=== PATIENT | male | born 1945 | race Caucasian/White ===

== ENCOUNTER 2016-06-23 11:42 | Outpatient (CLI) | payer MEDICARE, BC ==
[~2016-06-23] VITALS: Ht 177.8 cm; Wt 97.7 kg
--- NOTE | ~2016-06-23 | HEMODYNAMI ---
PATIENT:DONNIE FLORES MEDICAL RECORD: [id number] : 43 LOCATION:[facility] ADMISSION DATE: 06/23/16 Generatedon:06/23/201615:33 Patient name: DONNIE FLORES Patient #: [id number] SSN: : 1945 Date of study: 06/23/2016 Page: Of Hemodynamic Procedure Report Patient Data Patient Demographics Procedure consent was obtained First Name: DONNIE Gender: Male Last Name: MARK : 1945 Patient #: [id number] Age: 70 year(s) Race: Unknown Additional ID: [id number] Contact details [address]: [address] [place] [address] State: [place] City: [place] Zip code: [address] Admission Admission Data Admission Date: 06/23/2016 Admission Time: 11:42 Procedure Procedure Types Cath Procedure Diagnostic Procedure LHC LHC w/Coronaries w/Grafts PCI Procedure Coronary Stent Initial Procedure Description Procedure Date Procedure Date: 06/23/2016 Procedure Start Time: 14:30 Procedure Staff Name Function Atilio Arizmendi MD Performing Physician Milo Rascon RT Scrub Andrea Grant RT Monitor Manda Gillespie RN Nurse Procedure Data Cath Procedure Fluoroscopy Diagnostic fluoroscopy Total fluoroscopy Time: 21 time: 21 min min Diagnostic fluoroscopy Total fluoroscopy dose: dose: 1682.32 mGy 1682.32 mGy Contrast Material Contrast Material Type Amount (ml) Isovue 370 305 Entry Location Entry Primary Successful Side Size Upsize Upsize Entry Closure Succes sful Closure Location (Fr) 1 (Fr) 2 (Fr) Remarks Device Remarks Femoral Right 5 Fr 6 Fr artery Short Diagnostic catheters Device Type Used For End Catheter Placement Cordis 5Fr JL 4.0 Left Coronary Catheter (MP) Angiography Cordis 5Fr 3DRC Catheter Right Coronary (MP) Angiography Cordis Infinity 5Fr LCB SVG Angiography catheter Cordis 5Fr Pigtail LV Angiography Catheter (MP) Procedure Medications Medication Administration Route Dosage Oxygen NC 2 l/min Heparin Flush Bag added to field 2 bags (1000units/500ml NS) Lidocaine 2% added to field 20 Benadryl I.V. 50 mg Versed I.V. 1 mg Fentanyl I.V. 50 mcg Versed I.V. 1 mg Fentanyl I.V. 50 mcg Versed I.V. 0.5 mg Integrilin (Bolus I.V. 9 ml 2mg/ml) Heparin Bolus I.V. 5000 units Versed I.V. 0.5 mg Versed I.V. 1 mg Plavix P.O. 600 mg Hemodynamics Rest Heart Rate: 112 (bpm) Pressure Samples Time Site Value (mmHg) Purpose Heart Use Rate(bpm) 14:42 LV 115/10,18 Snapshot 77 14:43 AO 106/56(79) Pullback 87 14:43 LV 108/25,25 Pullback 87 Gradients Valve Time Site 1 Site 2 Mean SEP/DFP Peak To Heart Use (mmHg) (sec/min) Peak Rate (mmHg) (bpm) Aortic 14:43 LV AO 2 87 108/25,25 106/56(79) Calculations Valve P-P Mean Valve Index Valve Source Name Gradient Area Flow (cm2) Aortic 2 2 Snapshots Pre Cath Intra NCS Post Cath Vital Signs Time Heart Resp SPO2 NIBP (mmHg) Rhythm Pain Sedation Rate (ipm) (%) Status Level (bpm) 14:09:48 72 23 97 169/94(124) NSR 0 (11) 10(A) , No pain 14:14:08 76 19 98 173/96(122) NSR 0 (11) 10(A) , No pain 14:18:32 75 20 100 171/87(128) NSR 0 (11) 10(A) , No pain 14:22:58 68 18 98 154/78(114) NSR 0 (11) 10(A) , No pain 14:27:16 73 22 99 144/86(119) NSR 0 (11) 10(A) , No pain 14:31:30 70 20 95 152/85(120) NSR 0 (11) 9(A) , No pain 14:35:48 71 21 96 143/79(96) NSR 0 (11) 9(A) , No pain 14:40:02 70 22 94 108/62(86) NSR 0 (11) 9(A) , No pain 14:44:10 73 24 97 111/65(92) NSR 0 (11) 9(A) , No pain 14:48:20 70 27 94 109/60(91) NSR 0 (11) 9(A) , No pain 14:52:28 70 21 96 110/66(85) NSR 0 (11) 9(A) , No pain 14:56:40 69 23 94 103/54(83) NSR 0 (11) 9(A) , No pain 15:00:44 76 20 97 119/68(102) NSR 0 (11) 9(A) , No pain 15:04:54 72 22 96 128/71(99) NSR 0 (11) 9(A) , No pain 15:09:52 73 23 98 Measuring NSR 0 (11) 9(A) , No pain 15:10:03 72 22 97 126/75(98) NSR 0 (11) 9(A) , No pain 15:14:15 69 21 97 131/74(112) NSR 0 (11) 9(A) , No pain 15:18:27 67 22 97 140/74(94) NSR 0 (11) 9(A) , No pain 15:22:40 70 20 97 132/78(104) NSR 0 (11) 9(A) , No pain 15:26:54 68 20 96 130/73(100) NSR 0 (11) 9(A) , No pain 15:31:04 70 18 97 144/80(110) NSR 0 (11) 9(A) , No pain Medications Time Medication Route Dose Verified Delivered Reason Notes Effectiveness by by 14:08:09 Oxygen NC 2 Manda Amnda used for l/min Gillespie Gillespie community marketing coordinator RN 14:08:15 Heparin Flush added 2 Manda Manda used for Bag to bags Gillespie Gillespie procedure (1000units/500ml RN RN NS) 14:08:23 Lidocaine 2% added 20ml Manda Manda used for to vial Gillespie Gillespie procedure field SELLERS RN 14:08:29 Benadryl I.V. 50 mg Manda Manda Per physician Jose Miguel Gillespie RN RN 14:29:46 Versed I.V. 1 mg Manda Manda for sedation Jose Miguel Gillespie RN RN 14:29:55 Fentanyl I.V. 50 Manda Manda for sedation mcg Jose Miguel Mazariegoskins RN RN 14:32:06 Versed I.V. 1 mg Manda Manda for sedation Gillespieyesenia Gillespie RN RN 14:32:09 Fentanyl I.V. 50 Manda Manda for sedation mcg Jose Miguel Mazariegoskins RN RN 14:34:37 Versed I.V. 0.5 Manda Manda for sedation mg Gillespie Gillespie RN RN 14:53:54 Integrilin I.V. 9 ml Manda Manda for (Bolus 2mg/ml) Gillespie Gillespie anticoagulation RN RN 14:54:03 Heparin Bolus I.V. 5000 Manda Manda for units Gillespie Gillespie anticoagulation RN RN 15:00:16 Versed I.V. 0.5 Manda Manda for sedation mg Gillespie Gillespie RN RN 15:01:49 Versed I.V. 1 mg Manda Manda for sedation Gillespieyesenia Gillespie RN RN 15:27:34 Plavix P.O. 600 Manda Manda for mg Gillespieyesenia Gillespie antiplatelet RN RN therapy Procedure Log Time Note 13:57:56 Milo LUCAS(R) sent for patient. Start room use. 13:58:05 Time tracking: Regular hours 13:58:12 Plan of Care:Hemodynamics will remain stable., Cardiac rhythm will remain stable., Comfort level will be maintained., Respiratory function will remain adequate., Patient/ family verbilizes understanding of procedure., Procedure tolerated without complication., Recovers from procedure without complications.. 13:58:17 Patient received from Outpatients to IR Alert and oriented. Tansferred to table in Supine position. 13:58:19 Correct patient and procedure confirmed by team. 13:58:21 Signed procedure consent form obtained from patient. 13:58:24 ECG and BP/O2 sat monitors applied to patient. 13:58:30 - 13:58:34 H&P Date Dictated: 06/23/2016 H&P Addendum completed by physician on day of procedure. (MUST COMPLETE FOR ALL OUTPATIENTS). 13:58:35 Pre-procedure instructions explained to patient. 13:58:36 Pre-op teaching completed and patient verbalized understanding. 13:58:37 Family in waiting room. 13:58:39 Patient NPO since Midnight. 13:58:45 Is the patient allergic to Iodine/contrast media? No. 14:00:37 Is patient on blood thinner?Yes 14:00:42 ACC The patient was administered the following blood thiners within the last 24 hours: ACCAspirin 14:00:47 Patient diabetic? Yes. 14:00:49 If diabetic: On Metformin? Yes 14:00:51 If on Metformin: Last Dose? 06/23/2016 14:00:53 - 14:00:53 ----Pre-sedation anethsthesia assessment.---- 14:00:56 Previous problem with sedation/anesthesia? No ? 14:00:58 Snore? No 14:01:00 Sleep apnea? No 14:01:04 Deviated septum? No 14:01:05 Opens mouth fully? Yes 14:01:07 Sticks out tongue? Yes 14:01:09 Airway obstruction? No ? 14:01:11 Dentures? No ? 14:01:22 Pre procedure: right dorsailis pedis pulse Doppler 14:01:28 Patient pain scale 0/10 no. 14:01:38 Use device set Femoral Dx 14:01:41 Acist Syringe opened to sterile field. 14:01:41 Bag Decanter opened to sterile field. 14:01:42 Cardinal Cath Pack opened to sterile field. 14:01:43 Terumo 5Fr Hilliards Sheath opened to sterile field. 14:01:43 St Malik 260cm J .035 wire opened to sterile field. 14:01:45 Acist Hand Control opened to sterile field. 14:01:46 Acist Manifold opened to sterile field. 14:01:46 Cordis Infinity 5Fr Multipack catheter opened to sterile field. 14:01:47 Tegaderm 4 x 4 opened to sterile field. 14:01:48 IV Extension Set opened to sterile field. 14:02:02 IV patent on arrival in right forearm with 0.9% NaCl at [facility]. 14:02:04 Sharps counted by scrub and verified by R.N. 14:02:04 Alarms reviewed by R. N. 14:02:09 Right groin area was prepped with chlora-prep and draped in sterile fashion 14:08: Oxygen 2 l/min NC was given by Manda Gillespie RN; used for procedure; 14:08: Heparin Flush Bag (1000units/500ml NS) 2 bags added to field was given by Manda Gillespie RN; used for procedure; 14:: Lidocaine 2% 20ml vial added to field was given by Manda Gillespie RN; used for procedure; 14:08: Benadryl 50 mg I.V. was given by Manda Gillespie RN; Per physician; 14:08:36 Vital chart was started 14:15:39 TUBING, CONTRAST INJCTN HI PRES opened to sterile field. 14:20:38 Baseline sample Acquired. 14:20:43 Rhythm: sinus rhythm 14:28:15 Physician arrived 14:28:16 --------ALL STOP TIME OUT------ 14:28:21 Final Timeout: patient, procedure, and site verified with staff and physician. All members of the team are in agreement. 14:28:26 Right groin site verified by team. 14:28:31 Physical assessment completed. ASA score P 2 - A patient with mild systemic disease as per Atilio Arizmendi MD. 14:28:36 Sedation plan: IV Moderate Sedation Versed, Fentanyl 14:29:46 Versed 1 mg I.V. was given by Manda Gillespie RN; for sedation; 14:29:55 Fentanyl 50 mcg I.V. was given by Manda Gillespie RN; for sedation; 14:30:15 Procedure started. 14:30:15 Full Disclosure recording started 14:30:27 Local anesthetic to right femoral artery with Lidocaine 1% by Atilio Arizmendi MD.INITIAL ACCESS ONLY 14:30:40 A 5 Fr sheath was inserted into the Right Femoral artery 14:32:06 Versed 1 mg I.V. was given by Manda Gillespie RN; for sedation; 14:32:09 Fentanyl 50 mcg I.V. was given by Manda Gillespie RN; for sedation; 14:32:38 A Cordis 5Fr JL 4.0 Catheter (MP) was advanced over the wire and used for Left Coronary Angiography. 14:32:52 Procedure type changed to Cath procedure, Diagnostic procedure, LHC, LH C w/Coronaries w/Grafts, PCI procedure, Coronary Stent Initial 14:33:26 LCA angiography performed. 14:33:30 Catheter removed. 14:33:45 A Cordis 5Fr 3DRC Catheter (MP) was advanced over the wire and used for Right Coronary Angiography. 14:34:34 RCA angiography performed. 14:34:37 Versed 0.5 mg I.V. was given by Manda Gillespie RN; for sedation; 14:37:45 LEES to LAD angiography performed. 14:38:21 Catheter removed. 14:38:28 A Cordis Infinity 5Fr LCB catheter was advanced over the wire and used for SVG Angiography. 14:40:49 Catheter removed. 14:40:56 A Cordis 5Fr Pigtail Catheter (MP) was advanced over the wire and used for LV Angiography. 14:42:54 LV angiography performed. 14:43:24 Aortic Root visualized 14:44:18 Catheter removed. 14:44:25 Medtronic Launcher 5Fr AR 2.0 guide catheter opened to sterile field. 14:45:47 SVG to RCA occluded. 14:47:21 svg occluded 14:48:34 Terumo 6Fr Hilliards Sheath opened to sterile field. 14:48:49 Sheath upsized to a 6 Fr Short. 14:49:15 Wang Whisper J 300cm 0.014 guide wire opened to sterile field. 14:49:26 Pressi BasixCompak Inflation Kit opened to sterile field. 14:49:36 Medtronic Launcher 6Fr HS I guide catheter opened to sterile field. 14:53:20 6 Fr HS 1 guide catheter was inserted over the wire 14:53:26 WHISPER wire advanced. 14:53:54 Integrilin (Bolus 2mg/ml) 9 ml I.V. was given by Manda Gillespie RN; for anticoagulation; 14:54:03 Heparin Bolus 5000 units I.V. was given by Manda Gillespie RN; for anticoagulation; 14:57:44 Wang [place] 300cm 0.014 guide wire opened to sterile field. 14:57:54 COUGAR wire advanced. 15:00:16 Versed 0.5 mg I.V. was given by Manda Gillespie RN; for sedation; 15:01:49 Versed 1 mg I.V. was given by Manda Gillespie RN; for sedation; 15:05:18 Inflation number: 1 A Wadsworth Sci [place]rona 2.5 X 12 balloon was prepped and advanced across the Prox RCA, then inflated to 12 AARON for 0:10 (min:sec). 15:06:23 Balloon removed over the wire. 15:08:02 Inflation number: 1 A Wadsworth Sci [place]ron[place] 3.0 X 15 balloon was prepped and advanced across the Mid RCA, then inflated to 12 AARON for 0:15 (min:sec). 15:08:45 Inflation number: 2 The Wadsworth Sci Natrona 3.0 X 15 balloon was reinflated across the Mid RCA, to 10 AARON for 0:31 (min:sec). 15:09:14 Inflation number: 3 The Wadsworth Sci Natrona 3.0 X 15 balloon was reinflated across the Mid RCA, to 10 AARON for 0:17 (min:sec). 15:09:43 Inflation number: 4 The Wadsworth Sci Natrona 3.0 X 15 balloon was reinflated across the Mid RCA, to 8 AARON for 0:25 (min:sec). 15:10:27 Inflation number: 5 The Wadsworth Sci Natrona 3.0 X 15 balloon was reinflated across the Mid RCA, to 10 AARON for 0:28 (min:sec). 15:10:49 Balloon removed over the wire. 15:16:24 Inflation Number: 6 A Medtronic Integrity 3.0 X 15 stent was prepped an d advanced across the Mid RCA. The stent was deployed at 10 AARON for 0:03 (min:sec). 15:16:37 Stent catheter was removed intact over wire. 15:18:49 Inflation Number: 2 A Medtronic Integrity 3.0 X 12 stent was prepped an d advanced across the Prox RCA. The stent was deployed at 14 AARON for 0:29 (min:sec). 15:20:28 Cordis 6Fr Exoseal opened to sterile field. 15:22:19 Procedure ended.(Physican Out) 15::56 Fluoroscopy time 21.00 minutes. 15:23:04 Fluoroscopy dose: 1682.32 mGy 15:23:04 Flurop Dose total: 1682.32 15:23:37 Contrast amount:Isovue 370 305ml. 15:23:39 Sharps counted by scrub and verified by R.N. 15:23:41 Insertion/operative site no bleeding no hematoma. 15:23:50 Post-op/insertion site Right Femoral artery dressed using a 4 x 4 and Tegaderm. 15:23:54 Post right femoral artery:stable 15:23:56 Post Procedure Pulses reassessed and unchanged 15:24:01 Post-procedure physical assessment completed. ASA score P 2 - A patient with mild systemic disease as per Atilio Arizmendi MD. 15:24:04 Post procedure rhythm: unchanged. 15:24:06 Post procedure instruction explained to patient.Patient verbalizes understanding. 15:24:07 Procedure and supply charges have been captured, reviewed, submitted an d are correct. 15:27:34 Plavix 600 mg P.O. was given by Manda Gillespie RN; for antiplatelet therapy; 15:32:46 Report given to Outpatients. 15:32:50 Patient transfered to Outpatients with Bed. 15:33:17 Vital chart was stopped Intervention Summary Intervention Notes Time ActionType Lesion and Equipment Action# Pressure Duration Attributes Used 15:05:18 Inflate Prox RCA Wadsworth 1 12 00:10 balloon Sci Natrona 2.5 X 12 balloon 15:08:02 Inflate Mid RCA Wadsworth 1 12 00:15 balloon Sci [place]rona 3.0 X 15 balloon 15:08:45 Reinflate Mid RCA Wadsworth 2 10 00:31 balloon Sci [place]rona 3.0 X 15 balloon 15:09:14 Reinflate Mid RCA Wadsworth 3 10 00:17 balloon Sci [place]rona 3.0 X 15 balloon 15:09:43 Reinflate Mid RCA Wadsworth 4 8 00:26 balloon Sci Natrona 3.0 X 15 balloon 15:10:27 Reinflate Mid RCA Wadsworth 5 10 00:28 balloon Sci Natrona 3.0 X 15 balloon 15:16:24 Place stent Mid RCA Medtronic 6 10 00:04 Integrity 3.0 X 15 stent 15:18:49 Place stent Prox RCA Medtronic 2 14 00:29 Integrity 3.0 X 12 stent Device Usage Item Name Manufacture Quantity Catalog Number Hospital Part Current Mini mal Lot# / Charge Number Stock Stock Serial# Code Acist Acist 1 [id number] 600035 180941 046040 20 Syringe Medical Systems Inc Bag Microtek 1 2002S 937581 91315 517318 5 Decanter Medical Inc. Cardinal Cardinal 1 [id number] 988578 46525 616942 5 Cath Pack Health Terumo 5Fr Terumo 1 [id number] 328676 118176 883067 [address]ik St Malik 1 457842 841786 273438 836165 30 260cm J .035 wire Acist Hand Acist 1 08745 267054 465829 619205 5 Control Medical Systems Inc Acist Acist 1 22485 855063 280748 354856 5 Manifold Medical Systems Inc Cordis Cardinal 1 [id number] 859178 40095 001353 30 Infinity Health 5Fr Multipack catheter Tegade 4 3M 1 1626W 254757 498015 526658 5 x 4 IV Hospira 1 14344-00 550559 09763 534385 5 Extension Set TUBING, Merit 1 [id number] 895384 306556 575255 5 CONTRAST Medical INJCTN HI PRES Cordis 5Fr Cardinal 1 546206 5 JL 4.0 Health Catheter (MP) Cordis 5Fr Cardinal 1 751290 5 3DRC Health Catheter (MP) Cordis Cardinal 1 [id number] 606607 247952 453023 5 Infinity Health 5Fr LCB catheter Cordis 5Fr Cardinal 1 667398 5 Pigtail Health Catheter (MP) Medtronic Medtronic 1 [id number] 554819 478511 398424 1 Launcher 5Fr AR 2.0 guide catheter Terumo 6Fr Terumo 1 [id number] 654615 788388 819086 40 Hilliards Sheath Wang Wang 1 [id number] 600853 131470 843503 5 Whisper J Vascular 300cm 0.014 guide wire Merit Merit 1 [id number] 785545 236959 604694 15 [facility] Medical Inflation Kit Medtronic Medtronic 1 [id number] 398524 84105 081535 1 Launcher 6Fr HS I guide catheter Wang Wang 1 [id number] 623950 560828 432800 1 [place] Vascular 300cm 0.014 guide wire Wadsworth Sci Wadsworth 1 [id number] 610018 360961 929102 1 [id number] Natrona Scientific 2.5 X 12 balloon Wadsworth Sci Wadsworth 1 [id number] 769661 116174 550670 1 [id number] Natrona Scientific 3.0 X 15 balloon Medtronic Medtronic 1 [id number] 236299 263537 632843 9 [id number] Integrity 3.0 X 15 stent Medtronic Medtronic 1 [id number] 698624 908771 119230 7 [id number] Integrity 3.0 X 12 stent Cordis 6Fr Cardinal 1 [id number] 323347 349883 131414 10 [id number] [facility] Health Signature Audit [place] Stage Time Signature Unsigned Intra-Procedure 06/23/2016 Andrea 3:33:13 PM Juanita RT (R) (CV) Signatures Monitor : Andrea Signature : Juanita RT Date : Time : [place] [id number] [facility] [place] [address]
[2016-06-23] MEDS ORDERED: GLIPIZIDE10 MG PO (13:10)
[2016-06-23] MEDS ORDERED: GLUCOTROL 5 MG T5 MG PO (13:11)
[2016-06-23] MEDS ORDERED: PRED FORTE5 ML LEFT EYE (13:13)
[2016-06-23] MEDS ORDERED: PRED FORTE5 ML RIGHT EYE (13:13)
[2016-06-23] MEDS ORDERED: HYDROCODONE-APA1 TAB PO (13:14)
[2016-06-23] MEDS ORDERED: TOPROL XL25 MG PO (13:14)
[2016-06-23 13:15] LABS: BASOPHILS 0.1 % (0.0-2.0); EOSINOPHILS 0.6 % (0-7); HEMATOCRIT 37.6 % (42.0-54.0); IMMATURE GRANULOCYTES 0.4 % (0-5); LYMPHOCYTES 11.5 % (15-50); MCHC 31.9 g/dL (31.0-37.0); MCV 97.2 fL (80.0-100.0); MEAN PLATELET VOLUME 8.9 fL (7.4-10.4); MONOCYTES 4.2 % (2-11); NEUTROPHILS 83.2 % (40-80); PLATELET COUNT 199 10x3/uL (130-400); RBC 3.87 10x6/uL (4.20-6.10); RDW 15.9 % (11.5-14.5); WBC 8.3 10x3/uL (4.8-10.8)
[2016-06-23] MEDS ORDERED: LISINOPRIL10 MG PO (13:15)
[2016-06-23] MEDS ORDERED: METHOTREXATE2.5 MG PO (13:15)
[2016-06-23] MEDS ORDERED: PROZAC40 MG PO (13:16)
[2016-06-23] MEDS ORDERED: VICTOZA0.6 MG/0.1 SQ (13:17)
[2016-06-23] MEDS ORDERED: PREDNISONE5 MG PO (13:17)
[2016-06-23] MEDS ORDERED: GLUCOPHAGE500 MG PO (13:18)
[2016-06-23] MEDS ORDERED: ASPIRIN325 MG PO (13:19)
[2016-06-23] MEDS ORDERED: GALZIN50 MG PO (13:19)
[2016-06-23] MEDS ORDERED: FOLIC ACID1 MG PO (13:19)
[2016-06-23] MEDS ORDERED: PRAVACHOL40 MG PO (13:19)
[2016-06-23] MEDS ORDERED: FERROUS SULFAT325 MG PO (13:20)
[2016-06-23] MEDS ORDERED: MULTI-DAY VITAM1 TAB PO (13:20)
[2016-06-23] MEDS ORDERED: C-10001000 MG PO (13:21)
[2016-06-23 13:22] LABS: ANION GAP 13.8 mmol/L (8-16); CALCIUM 8.9 mg/dL (8.5-10.1); CREATININE - SERUM 1.1 mg/dL (0.6-1.3); POTASSIUM - SERUM 4.8 mmol/L (3.5-5.1)
[2016-06-23 13:29] VITALS: BP 138/58; Ht 177.8 cm; Wt 97.7 kg
--- NOTE | 2016-06-23 17:52 | NUR ---
1748 DR. REYNAGA PAGED TO INQUIRD ABOUT PLAVIX RX.
[2016-06-23] MEDS ORDERED: PLAVIX75 MG PO (17:58)
--- NOTE | 2016-06-25 14:16 | OP ---
PATIENT NAME: DONNIE FLORES MEDICAL RECORD: [id number] :43 LOCATION:D.CAT ADMISSION DATE: SURGEON: NIGEL ROSENBERG MD DATE OF OPERATION: 06/23/2016 PROCEDURE: Left heart catheterization, selective coronary angiography, right femoral artery approach. CATHETERS: A 5-Moldovan sheath, 5/4 left and right Akhil, 5/4 pig. The procedure was well tolerated and we proceeded immediately to PTCA stenting. FINDINGS: Left ventriculography in 30-degree NICHOLAS view: Normal wall motion and normal systolic function. AORTIC ROOT: Aortic root shows no vein grafts filling. LV GRAM: LV gram shows normal wall motion, normal systolic function. CORONARY ANATOMY: LEFT MAIN: Left main fills for a short period of time then totally occluded. LAD: LAD or Circ are not seen filling via the left main. LEES to LAD: Widely patent throughout its course. This fills the diagonal 1 and LEES to LAD. CIRCUMFLEX GRAFT: Nub is found. This shows nub only. ROSEBUD RIGHT: [place] right has a previously placed stent with 2 sequential stenosis of 90%. The vein graft to right itself is totally occluded. It does fill the circumflex via collaterals. PLAN: Intervention of the [place] right, this should help revascularize the circumflex as well. DESCRIPTION: The 5-Moldovan sheath was changed for 6-Moldovan sheath. A hockey stick guide catheter provided excellent guide catheter support followed by a 300 cm [place] XT wire was placed across the 2 lesions in the mid and proximal portion of the right coronary. Predeployment ballons used were 2.5 and 3.0 Park predeployment. Stents used were a 3.0 x 15 and 3.0 x 12 Integrity stents, which were inflated up to 14 atmospheres each for 45 seconds for each inflation. Final injection shows excellent resolution of two 90% stenosis, no significant residual. DAYANA flow was 3 throughout the procedure. Integrilin was used in the case. Plavix was loaded in the lab. Sheath was closed with ExoSeal device. TRANSINT:[id number] Voice Confirmation ID: [id number] DOCUMENT ID: [id number] OPERATIVE REPORT [id number] DONNIE FLORES NIGEL ROSENBERG MD at 1412 CC: [id number] DICTATION DATE: 06/23/16 1527 METAL TANK BUILDER: 06/23/16 1948 DEP CLI 06/23/16 [place] [id number] [place] [address]
== END 2016-06-23 19:35 | disposition home or self-care (01) ==
LOC: D.CATH 11:42
PROVIDERS: Internal Medicine Interventional Cardiology
DX: I25.10 Atherosclerotic heart disease of native coronary artery without angina pectoris (principal); I25.810 Atherosclerosis of coronary artery bypass graft(s) without angina pectoris; Z95.5 Presence of coronary angioplasty implant and graft; I10 Essential (primary) hypertension; E11.9 Type 2 diabetes mellitus without complications; M35.3 Polymyalgia rheumatica; E78.5 Hyperlipidemia, unspecified

== ENCOUNTER 2017-03-26 14:54 | Inpatient (IN) | payer MEDICARE, BC ==
[~2017-03-26 14:54] MED LIST: ASPIRIN325 MG PO; C-10001000 MG PO; FERROUS SULFAT325 MG PO; FOLIC ACID1 MG PO; GALZIN50 MG PO; GLIPIZIDE10 MG PO; GLUCOPHAGE500 MG PO; GLUCOTROL 5 MG T5 MG PO; HYDROCODONE-APA1 TAB PO; LISINOPRIL10 MG PO; METHOTREXATE2.5 MG PO; MULTI-DAY VITAM1 TAB PO; PLAVIX75 MG PO; PRAVACHOL40 MG PO; PRED FORTE5 ML LEFT EYE; PRED FORTE5 ML RIGHT EYE; PREDNISONE5 MG PO; PROZAC40 MG PO; TOPROL XL25 MG PO; VICTOZA0.6 MG/0.1 SQ
--- NOTE | 2017-03-26 16:00 | NUR ---
RECIEVED ON FLOOR/WC FROM [facility],S/P LUMBAR FUSION,HAS HX OF IPF.ON O2 AT 2-3L/NC HOME O2 DEVICE.PLACED ON WALL O2 AT 4L.ORIENTED TO ROOM AND SURROUNDINGS.
--- NOTE | 2017-03-26 16:20 | NUR ---
NOTED O2 SATS 84 ON 4L.RT NOTIFIED.PLACED ON OXYMISER 8L WITH SATS NOW 90-92% SATS.DAUGHTER AT BEDSIDE.APPEARS VERY TIRED.RESPS 36-40.
[2017-03-26] MEDS ORDERED: PROVENTIL/2.5 MG/3 M INH (16:39)
[2017-03-26] MEDS ORDERED: LOW DOSE ASPIRI81 M1 PO (16:42)
[2017-03-26] MEDS ORDERED: LASIX40 MG PO (16:49)
[2017-03-26] MEDS ORDERED: PREDNISONE5 MG PO (17:04)
[2017-03-26] MEDS ORDERED: PEPCID20 MG PO (17:12)
[2017-03-26] MEDS ORDERED: NITROSTAT0.4 MG SL (17:14)
[2017-03-26] MEDS ORDERED: ZINC50 MG PO (17:16)
[2017-03-26 19:34] VITALS: BP 114/55; BMI 30.5
--- NOTE | 2017-03-26 20:01 | NUR ---
PHYSICAL THERAPIST, KRISTIN TRANSFERRED PT. TO BED. POSITIONED TO COMFORT AND PT. REQUESTING PAIN MEDICATION FOR BACK PAIN #7. INFORMED PT'S NURSE, LINDA VIGIL OF PT'S REQUEST. LOOKED AT PT'S MAR WITH LINDA VIGIL AND PT. HAS NO PAIN MEDS ORDERED. CHARGE NURSE, MARLO HORNE PLACED CALL TO DR. VERDUZCO FOR PAIN MED REQEUST. INFORMED PT. OF SITUATION AND HE ACKNOWLEDGED UNDERSTANDING. CALL LIGHT WITHIN REACH FOR ANY OTHER NEEDS.
--- NOTE | 2017-03-26 20:15 | NUR ---
REST IN BED, STATES ROOM TEMP IS HOT, ADJUST ROOM TEMP.
[2017-03-26 23:57] VITALS: BP 117/66
--- NOTE | 2017-03-27 02:10 | NUR ---
EMPTY URINAL,300ML.
[2017-03-27 05:59] LABS: BASOPHILS 0.1 % (0-2); EOSINOPHILS 1.6 % (0-7); HEMATOCRIT 24.8 % (42.0-54.0); HEMOGLOBIN 7.9 g/dL (13.5-17.5); IMMATURE GRANULOCYTES 0.2 % (0-5); LYMPHOCYTES 12.9 % (15-50); MCH 30.4 pg (26.0-34.0); MCHC 31.9 g/dL (31.0-37.0); MCV 95.4 fL (80.0-100.0); MEAN PLATELET VOLUME 9.8 fL (7.4-10.4); MONOCYTES 9.9 % (2-11); NEUTROPHILS 75.3 % (40-80); RDW 15.6 % (11.5-14.5); WBC 8.2 10x3/uL (4.8-10.8)
[2017-03-27 06:00] LABS: PLATELET COUNT 255 10x3/uL (130-400)
--- NOTE | 2017-03-27 06:13 | NUR ---
REST IN BED, EYE CLOSE, CALL LIGHT IN REACH.
[2017-03-27 06:21] LABS: CALC OSMOLALITY 284 mosm/kg (275-300); CALCIUM 8.6 mg/dL (8.5-10.1); CARBON DIOXIDE 30.1 mmol/L (21.0-32.0); CHLORIDE - SERUM 98 mmol/L (98-107); GLUCOSE 204 mg/dL (74-106); POTASSIUM - SERUM 3.9 mmol/L (3.5-5.1); SODIUM 136 mmol/L (136-145); UREA NITROGEN 32 mg/dL (7-18); eGFR NON AFRICAN AMERICAN 78 mL/min (90-120)
--- NOTE | 2017-03-27 07:42 | NUR ---
RESTING QUIETLY IN BED. CALL LIGHT IN REACH. BED IN LOWEST POSITION.
[2017-03-27 08:21] VITALS: BP 108/44
--- NOTE | 2017-03-27 12:43 | NUR ---
SITTING UP IN BED EATING LUNCH. STILL C/O SOB WITH MINIMAL EXERTION. OXYMIZER IN USE 8L.
[2017-03-27 14:19] VITALS: BMI 30.4
--- NOTE | 2017-03-27 16:16 | NUR ---
PT REQUESTED PRN ALBUTEROL. ASSESSED CLEAR AND DIMINISHED BREATH SOUNDS THROUGHOUT ANTERIOR PIPER OF AUSCULTATION NO IMMEDIATE S/S OF RESP DISTRESS
--- NOTE | 2017-03-27 19:50 | NUR ---
SIT UP IN WHEELCHAIR AND WATCH TV.
--- NOTE | 2017-03-28 02:10 | NUR ---
RESTING IN BED, EYES CLOSED. CONTINUES ON OXYMIZER @ 6L FLOW.
[2017-03-28 02:43] VITALS: BP 117/54
--- NOTE | 2017-03-28 04:25 | NUR ---
SIT UP IN WHEELCHAIR, STATE:" SIT IN WHEELCHAIR MORE COMFORTABLE THAN LAYING IN BED, AND WILL CALL WHEN NEED LAYING IN BED."
--- NOTE | 2017-03-28 07:11 | NUR ---
RECIEVED UP IN BED WITH EYES CLOSED. EASILY AROUSES TO VERBAL STIMULI. PLEASANT AND COOPERATIVE. DENIES ANY PAIN. CALL LIGHT AND OVERBED TABLE IN REACH. 4 SURGICAL INCISIONS TO RIGHT LOWER NACK. NO REDNESS OR DRAINAGE OBSERVED. ABRASION TO RIGHT AND LEFT ELBOW. OXYMIZER AT [address] RESP[address] EVEN AND UNLABORED. HOB ELEVATED AND FEET ELEVATED.
[2017-03-28 07:20] LABS: BASOPHILS 0.1 % (0-2); EOSINOPHILS 3.2 % (0-7); HEMATOCRIT 24.5 % (42.0-54.0); HEMOGLOBIN 7.6 g/dL (13.5-17.5); IMMATURE GRANULOCYTES 0.6 % (0-5); LYMPHOCYTES 12.6 % (15-50); MCH 29.8 pg (26.0-34.0); MCV 96.1 fL (80.0-100.0); MEAN PLATELET VOLUME 9.5 fL (7.4-10.4); NEUTROPHILS 72.5 % (40-80); PLATELET COUNT 256 10x3/uL (130-400); RBC 2.55 10x6/uL (4.20-6.10); RDW 15.8 % (11.5-14.5); WBC 6.9 10x3/uL (4.8-10.8)
[2017-03-28 09:05] VITALS: BP 121/39
--- NOTE | 2017-03-28 10:39 | NUR ---
UP WITH THERAPY THIS AM. PLEASANT AND COOPERATIVE. DENIES ANY PAIN.
--- NOTE | 2017-03-28 20:05 | NUR ---
SIT UP IN WHEELCHAIR AND WATCH TV.
[2017-03-28 23:21] VITALS: BP 111/44
--- NOTE | 2017-03-28 23:25 | NUR ---
IN BED, EYES CLOSED. RESPIRING QUIETLY.
--- NOTE | 2017-03-29 01:41 | NUR ---
REST QUIELTY IN BED, HOB 35 DEGREE, CALL LIGHT IN REACH.
--- NOTE | 2017-03-29 06:44 | NUR ---
SIT UP IN WHEELCHAIR AND STATES :"MY BACK FEEL COMFORTABLE, WHEN SIT IN WHEELCHAIR."
--- NOTE | 2017-03-29 07:25 | NUR ---
Sitting up in w/c reading newspaper. Alert and oriented. denies any needs or pain. no s/sx of respiratory distress. call light within reach, w/c brakes locked, alarm on, personal items within reach. will continue to monitor
[2017-03-29 08:08] VITALS: BP 125/53
--- NOTE | 2017-03-29 13:10 | NUR ---
SITTING UP IN CHAIR WATCHING TV. DENIES ANY NEEDS. CALL LIGHT WITHIN REACH, CHAIR BRAKES ON, URINAL WITHIN REACH AND EMPTY. WILL CONTINUE TO MONITOR
--- NOTE | 2017-03-29 17:13 | NUR ---
SITTING UP IN BED WATCHING FOOTBALL. FAMILY AT BEDSIDE. DENIES ANY NEEDS. CALL LIGHT AND PERSONAL ITEMS WITHIN REACH, BED LOW, ALARM ON, O2 AT 8L VIA OXYMIZER. WILL CONTINUE TO MONITOR
[2017-03-29 19:00] VITALS: BP 105/45
--- NOTE | 2017-03-29 19:35 | NUR ---
PT IN BED WITH HOB UP FOR COMFORT. WATCHING TV. O2 @ 8L OXIMIZER. NO IV. MIN.-STAND BY. WALKER. WC. URINAL. EGGCRATE MATTRESS. BED IN LOWEST POSITION AND CALL LIGHT WITHIN REACH. BED ALARM ON.
--- NOTE | 2017-03-29 23:05 | NUR ---
ASSISTED PT TO BATHROOM AND BACK TO BED.
--- NOTE | 2017-03-30 00:35 | NUR ---
RESTING IN BED, EYES CLOSED, HOB UP 20 DEGREES. CONTINUES ON OXYMIZER @ 8L FLOW. APPEARS COMFORTABLE.
--- NOTE | 2017-03-30 01:30 | NUR ---
C/O PAIN LEVEL OF 9/10 IN LOW BACK. GAVE PATIENT NORCO X1 TAB PO.
--- NOTE | 2017-03-30 05:30 | NUR ---
PT LYING IN BED WITH HOB UP FOR COMFORT. EYES CLOSED. RESP. EVEN. GURINDER ALARM ON. BED IN LOWEST POSITION AND CALL LIGHT WITHIN REACH.
[2017-03-30 05:38] LABS: BASOPHILS 0.3 % (0-2); EOSINOPHILS 3.4 % (0-7); HEMATOCRIT 27.6 % (42.0-54.0); HEMOGLOBIN 8.4 g/dL (13.5-17.5); IMMATURE GRANULOCYTES 0.3 % (0-5); LYMPHOCYTES 18.7 % (15-50); MCH 29.9 pg (26.0-34.0); MCHC 30.4 g/dL (31.0-37.0); MEAN PLATELET VOLUME 9.4 fL (7.4-10.4); MONOCYTES 9.4 % (2-11); NEUTROPHILS 67.9 % (40-80); RBC 2.81 10x6/uL (4.20-6.10); RDW 15.6 % (11.5-14.5); WBC 7.7 10x3/uL (4.8-10.8)
[2017-03-30 05:42] LABS: CALC OSMOLALITY 284 mosm/kg (275-300); CALCIUM 8.8 mg/dL (8.5-10.1); CARBON DIOXIDE 35.2 mmol/L (21.0-32.0); CHLORIDE - SERUM 103 mmol/L (98-107); CREATININE - SERUM 0.9 mg/dL (0.6-1.3); MCV 98.2 fL (80.0-100.0); PLATELET COUNT 337 10x3/uL (130-400); POTASSIUM - SERUM 4.4 mmol/L (3.5-5.1); SODIUM 141 mmol/L (136-145); UREA NITROGEN 19 mg/dL (7-18); eGFR NON AFRICAN AMERICAN 88 mL/min (90-120)
[2017-03-30 05:44] LABS: GLUCOSE 130 mg/dL (74-106)
[2017-03-30 09:00] VITALS: BP 114/56
--- NOTE | 2017-03-30 09:05 | NUR ---
PT AM MEDS ADMINISTERED. PT REQ AND REC'D PRN PAIN MED AT THIS TIME. WCTM.
--- NOTE | 2017-03-30 12:15 | NUR ---
PT SITTING UP EATING LUNCH, NATASHA NEEDS. WCTM.
--- NOTE | 2017-03-30 14:49 | NUR ---
PT FAMILY IN ROOM, DENIES NEEDS. WCTM.
--- NOTE | 2017-03-30 19:55 | NUR ---
PT. IN BED WITH HOB UP FOR COMFORT AND IS WATCHING TV. ASSESSMENT COMPLETED. NO VOICED NEEDS AT THIS TIME AND HIS CALL LIGHT IS WITHIN REACH.
[2017-03-30 20:34] VITALS: BP 97/46
--- NOTE | 2017-03-30 23:31 | NUR ---
PT. IN BED WITH HOB/FOB UP FOR COMFORT. EYES CLOSED AND RESP. DEEP AND EVEN WITH HIS CALL LIGHT WITHIN REACH.
--- NOTE | 2017-03-31 03:21 | NUR ---
PT. ASLEEP WITH EYES CLOSED AND RESP. EVEN WITH OXIMIZER ON VIA N/C AT 6L/MIN. NO S/S DISTRESS OBSERVED AND HIS CALL LIGHT IS WITHIN REACH.
--- NOTE | 2017-03-31 07:20 | NUR ---
SITTING UP IN W/C WATCHING TV. C/O LOWER BACK PAIN RADIATING DOWN LEGS STATES HIS PAIN MEDICATION IS NOT HELPING WITH THE PAIN. WILL DISCUSS WITH DR. VERDUZCO THIS MORNING ON A POSSIBLE NEW POC. NO OTHER CONCERNS VOICED. W/C BRAKES LOCKED, PERSONAL ITEMS WITHIN REACH. WILL CONTINUE TO MONITOR
[2017-03-31 08:24] VITALS: BP 109/42
--- NOTE | 2017-03-31 09:57 | RHP ---
PATIENT: DONNIE FLORES MEDICAL RECORD: [id number] ACCOUNT: [id number] LOCATION:[facility], [id number] : 43 ADMISSION DATE: 03/26/17 REHABILITATION HISTORY AND PHYSICAL EXAMINATION POST ADMISSION PHYSICIAN EXAMINATION Post-Admission Physical Examination and History and Physical DATE OF ADMISSION: 03/26/2017 ADMITTING DIAGNOSES: Spinal stenosis at L2-L3 and L3-L4 with severe central and biforaminal neural compression at L3-L4. HISTORY OF PRESENT ILLNESS: The patient is a 71-year-old gentleman with past medical history of diabetes, coronary artery disease, lumbar radiculopathy, sleep apnea, aortic aneurysm, polymyalgia rheumatica. He has been treated with methotrexate for several years, complicated with pulmonary fibrosis, presented to EMS with complaints of severe lower back pain and bilateral leg pain that worsened since April. MRI showed significant spinal stenosis at L2-L3 and L3-L4, severe central and biforaminal neural compression of L3-L4. He was referred to Dr. Yung and the patient underwent a XLIF of L2-L3 and L3-L4 plate and posterior spinal fusion on March 20. Postop was complicated by asymptomatic VT with troponin of 3.05, acute kidney injury, uncontrolled hyperglycemia and hyperkalemia. The patient participated with therapy and fatigues very easily requiring assistance with transfers, ambulation and ADLs. Previously, he was living independently with his ADLs is moderately independent with ambulation and living alone. He required intensive inpatient therapy to get him back to his prior level of functioning, acute inpatient rehabilitation was actually ordered by his physician. COMORBIDITIES: Include gastroesophageal reflux disease and pulmonary fibrosis. PAST MEDICAL HISTORY: Significant for polymyalgia rheumatica, pulmonary fibrosis, coronary artery disease, aortic aneurysm, lumbar radiculopathy, diabetes and gastroesophageal reflux disease. PAST SURGICAL HISTORY: As above. ALLERGIES: No known drug allergies. CURRENT MEDICATIONS: Include Prozac 40 mg daily, Dulcolax suppository p.r.n., polyethylene glycol 17 g in 8 ounces of water daily. He is on vitamin C 1000 units daily, prednisone 5 mg daily, multivitamin 1 daily, metoprolol 25 mg daily, metformin 500 mg b.i.d. with meals, glipizide 10 mg b.i.d., furosemide 40 mg daily, folic acid 1 mg daily, lisinopril 5 mg daily, aspirin chewable 81 mg daily, Plavix 75 mg daily, Lipitor 40 mg daily, [place] 10/325 one tab q.4 hours p.r.n. He is on ferrous sulfate 325 mg b.i.d., Nitrostat p.r.n., Pepcid 20 mg b.i.d. and Ventolin updrafts as needed. HABITS: No alcohol or tobacco use. FAMILY HISTORY: Noncontributory. SOCIAL HISTORY: The patient hopes to return back home and get back to his prior level of functioning. HISTORY AND PHYSICAL [id number] DONNIE FLORES REVIEW OF SYSTEMS: GENERAL: Does complain of some weakness. HEENT: Denies cold, cough or congestion. CARDIOVASCULAR: Denies any chest pain. PHYSICAL EXAMINATION: VITAL SIGNS: Stable, afebrile. GENERAL: A well-developed gentleman in no acute distress, alert upon exam. HEENT: Normocephalic and atraumatic. Mucosa moist. NECK: Supple. No lymphadenopathy. LUNGS: Clear at this time. HEART: Regular rate and rhythm. ABDOMEN: Benign. EXTREMITIES: He does have some noted weakness in his lower extremities. NEUROLOGIC: Seems intact. LABORATORY DATA: His white count is 8.2, H&H of 7.9 and 24.8 and platelet count was noted to be 255. Sodium is 136, potassium 3.9, BUN and creatinine of 32 and 1.0 and blood sugar is noted to be 204. ASSESSMENT: This is a 71-year-old gentleman, who is status post XLIF of his lumbar region. The patient has potential to make improvement. We instituted the following multidisciplinary therapies including, but not limited to physical, occupational, respiratory, speech, nutritional services, prosthetics and orthotics. Given his complex condition and risk for more complications, rehabilitation services cannot be provided at a lower level of care such as a half-way facility. PLAN: 1. Admit to [facility] rehab for intensive inpatient therapy to include the following disciplines: A. Physical therapy to improve gait, all transfer skills and bed mobility to a modified independent level. B. Occupational therapy to improve activities of daily living to a modified independent level. C. Case management to assist with discharge planning and placement options. D. Nutrition to assist with nutritional needs. E. Rehabilitation nursing to assist with monitoring the patient's underlying medical conditions and to assist with any type of bowel or bladder management. 2. The patient's current medications and medical care will be continued. 3. The patient will be placed on standard fall precautions. 4. The patient's estimated length of stay is approximately 7-10 days. 5. Watch his blood counts closely. If he is symptomatic at all with his underlying heart disease, we will go ahead and transfuse; hopefully, will be able to make back some of this blood on his own and we will discuss this with the patient. TRANSINT:[id number] Voice Confirmation ID: [id number] DOCUMENT ID: [id number] NICOLASA notes whether there has been none or any medical/functional change since admission: - Resp distress noted on admit, requiring O2 @ 8L/oximizer. HISTORY AND PHYSICAL [id number] DONNIE FLORES attests patient continues to be appropriate for IRF: - Will continue to monitor respiratory distress. KARLA VERDUZCO MD at 0957 CC: [id number] DICTATION DATE: 03/27/171919 DIRECTOR LIFE SCIENCES: 03/27/171957 ADM IN [facility] [address] [place] [address]
--- NOTE | 2017-03-31 10:06 | NUR ---
SITTING UP IN W/C IN ROOM. DENIES ANY NEEDS. WILL CONTINUE TO MONITOR
--- NOTE | 2017-03-31 13:21 | NUR ---
SITTING UP IN RECLINER EYES CLOSED RESTING. APPROPRIATE RISE AND FALL OF CHEST. NO S/SX OF RESPIRATORY DISTRESS. CONTINUES ON O2 5L VIA OXYMIZER. CALL LIGHT WITHIN REACH, CHAIR BRAKES LOCKED. WILL CONTINUE TO MONITOR
--- NOTE | 2017-03-31 16:44 | NUR ---
SITTING UP IN BED WATCHING TV AND VISITING WITH FAMILY. NO S/SX OF RESPIRATORY DISTRESS. CALL LIGHT AND PERSONAL ITEMS WITHIN REACH, BED LOW AND ALARM ON. WILL CONTINUE TO MONITOR
--- NOTE | 2017-03-31 17:56 | NUR ---
SITTING UP EATING SUPPER. DENIES NEEDS. BED IN LOWEST POSITION.
--- NOTE | 2017-03-31 19:50 | NUR ---
PT. LYING IN BED WITH HOB SLIGHTLY ELEVATED AND LE'S UP ON PILLOW TO HELP WITH EDEMA. ASSESSMENT COMPLETED. PT. HAVING ELEVATED PAIN LEVEL AND PT. REQUESTING PAIN MED. WILL ADMIN. PAIN MED. CALL LIGHT WITHIN REACH.
[2017-03-31 21:45] VITALS: BP 105/44
--- NOTE | 2017-03-31 23:21 | NUR ---
PT. IN BED WITH HOB UP FOR COMFORT WITH EYES CLOSED AND RESP. DEEP AND EVEN. CALL LIGHT WITHIN REACH.
[2017-04-01] VITALS (9 sets, daily range): BP systolic 96–119; BP diastolic 43–59
--- NOTE | 2017-04-01 03:12 | NUR ---
PT. IN BED WITH HOB SLIGHTLY ELEVATED AND LE'S UP ON PILLOW TO HELP DECREASE EDEMA. EYES CLOSED AND RESP. EVEN AND HIS CALL LIGHT IS WITHIN REACH.
--- NOTE | 2017-04-01 03:13 | NUR ---
PT. IN BED WITH HOB UP FOR COMFORT AND LE'S REMAIN ELEVATED UP ON PILLOW. EYES CLOSED AND RESP. EVEN. CALL LIGHT WITHIN REACH.
[2017-04-01 06:14] LABS: BASOPHILS 0.1 % (0-2); EOSINOPHILS 1.5 % (0-7); HEMATOCRIT 26.7 % (42.0-54.0); HEMOGLOBIN 8.2 g/dL (13.5-17.5); IMMATURE GRANULOCYTES 0.4 % (0-5); LYMPHOCYTES 17.6 % (15-50); MCH 29.9 pg (26.0-34.0); MCHC 30.7 g/dL (31.0-37.0); MCV 97.4 fL (80.0-100.0); MEAN PLATELET VOLUME 9.5 fL (7.4-10.4); MONOCYTES 6.8 % (2-11); NEUTROPHILS 73.6 % (40-80); PLATELET COUNT 359 10x3/uL (130-400); RBC 2.74 10x6/uL (4.20-6.10); RDW 15.8 % (11.5-14.5)
[2017-04-01 06:32] LABS: CALC OSMOLALITY 285 mosm/kg (275-300); CARBON DIOXIDE 32.8 mmol/L (21.0-32.0); CHLORIDE - SERUM 101 mmol/L (98-107); CREATININE - SERUM 0.8 mg/dL (0.6-1.3); GLUCOSE 177 mg/dL (74-106); POTASSIUM - SERUM 4.3 mmol/L (3.5-5.1); SODIUM 140 mmol/L (136-145); UREA NITROGEN 20 mg/dL (7-18); eGFR NON AFRICAN AMERICAN > 90 mL/min (90-120)
--- NOTE | 2017-04-01 07:59 | NUR ---
PT SITTING UP IN RECLINER, EATING BREAKFAST, DENIES NEEDS. WCTM.
--- NOTE | 2017-04-01 10:00 | NUR ---
DR VERDUZCO ORDERED 1 UNIT BLOOD TRANSFUSION. PT RECEIVING THERAPY THIS AM. WILL ADMINISTER AFTER LUNCH.
--- NOTE | 2017-04-01 15:00 | NUR ---
IV STARTED BY VASCULAR ACCESS NURSE AFTER THREE ATTEMPTS FROM FLOOR NURSES. PT NOW HAS 20 GAUGE IV TO THE LEFT FOREARM.
--- NOTE | 2017-04-01 16:04 | NUR ---
PRBC TRANSFUSION STARTED AT THIS TIME.
--- NOTE | 2017-04-01 16:15 | NUR ---
PT VS REMAIN STABLE. PT STATES HE IS "FEELING FINE." WCTM.
--- NOTE | 2017-04-01 16:32 | NUR ---
PT RESTING IN BED. BLOOD TRANSFUSING. VS REMAIN STABLE. PT DENIES NEEDS.
--- NOTE | 2017-04-01 20:05 | NUR ---
PT. IN BED WITH HOB SLIGHTLY ELEVATED AND LE'S ELEVATED UP ON PILLOW. ASSESSMENT COMPLETED. INSTRUCTED PT. ON DEEP BREATHING/COUGHING EXERCISES WHEN HE IS SITTING UP HE HAS SOME CRACKLES IN HIS LUNGS. DEMONSTRATED TO PT. HOW TO DO THESE EXERCISES. PT. STATES HE FEELS MUCH BETTER AFTER RECEIVING BLOOD TODAY. CALL LIGHT WITHIN REACH.
--- NOTE | 2017-04-01 21:15 | NUR ---
RETOOK PT'S B/P AND IT'S . PT. STILL STATES HE FEELS MUCH BETTER NOW THAT HE'S RECEIVED BLOOD.
--- NOTE | 2017-04-02 03:13 | NUR ---
PT. IN BED WITH HOB SLIGHTLY ELEVATED AND LE'S ELEVATED UP ON PILLOW. EYES CLOSED AND RESP. EVEN WITH CALL LIGHT WITHIN REACH.
[2017-04-02 07:52] VITALS: BP 109/50
--- NOTE | 2017-04-02 08:00 | NUR ---
RESTING QUIETLY IN BED. CALL LIGHT IN REACH. BED IN LOWEST POSITION.
--- NOTE | 2017-04-02 09:40 | NUR ---
Nutrition Follow Up: Pt with good po intake on an AHA diet. Meds and labs reviewed. +BM. Pt continues at low nutritional risk. RD following.
--- NOTE | 2017-04-02 12:15 | NUR ---
PT EATING LUNCH, DENIES NEEDS. WCTM.
--- NOTE | 2017-04-02 19:38 | NUR ---
PM ROUNDS MADE, PT SITTING UP IN RECLINER, INFORMED PT THAT I WILL BE BACK SHORTLY TO DO ASSESSMENT, PT VERBALIZES UNDERSTANDING, DENIES NEEDS AT THIS TIME
[2017-04-02 20:24] VITALS: BP 108/48
--- NOTE | 2017-04-02 20:24 | NUR ---
ASSESSMENT PER FLOW SHEET, VS OBTAINED, ADM 2100 MEDS PER MD ORDERS WITH FRESH H20, SEE EMAR, PT RATES BACK PAIN 01/08, PT INFORMED PAIN MED WAS NOT DUE TILL 9:30PM AND THAT I WILL BE BACK AROUND THAT TIME TO ADM IT, PT VERBALIZES UNDERSTANDING, DENIES NEEDS AT THIS TIME
--- NOTE | 2017-04-02 21:38 | NUR ---
PT CONTINUES TO SIT IN RECLINER, REFUSES TO GET INTO BED AT THIS TIME, ADM PAIN MED PO PER MD ORDERS, SEE EMAR, REQUESTED AND PROVIDED EXTRA BLANKET, REQUESTED AND TURNED LIGHTS OFF, PT DENIES FURTHER NEEDS AT THIS TIME
--- NOTE | 2017-04-02 22:20 | NUR ---
PT RESTING WITH EYES CLOSED IN RECLINER, RESP QUIET, NO DISTRESS NOTED, LEFT UNDISTURBED AT THIS TIME
--- NOTE | 2017-04-03 00:14 | NUR ---
PT UP IN BR AT THIS TIME, PT DENIES NEEDS OR PAIN, PT INST TO USE CALL LIGHT FOR ANY ASSISTANCE, PT VERBALIZES UNDERSTANDING
--- NOTE | 2017-04-03 01:36 | NUR ---
PT [employer] COOK LIGHT, C/O BACK PAIN, ADM PAIN MED PER MD ORDERS, SEE EMAR, PT DENIES FURTHER NEEDS
--- NOTE | 2017-04-03 02:05 | NUR ---
PT RESTING WITH EYES CLOSED IN BED, RESP QUIET, NO DISTRESS NOTED, LEFT UNDISTURBED AT THIS TIME, BED IN LOW POSITION, SIDE RAILS X 2, CALL LIGHT IN REACH
--- NOTE | 2017-04-03 04:19 | NUR ---
PT RESTING WITH EYES CLOSED, RESP QUIET, NO DISTRESS NOTED, LEFT UNDISTURBED AT THIS TIME, BED IN LOW POSITION, SIDE RAILS X 2, CALL LIGHT IN REACH
[2017-04-03 05:56] LABS: BASOPHILS 0.1 % (0-2); EOSINOPHILS 1.9 % (0-7); HEMOGLOBIN 8.7 g/dL (13.5-17.5); IMMATURE GRANULOCYTES 0.1 % (0-5); LYMPHOCYTES 15.5 % (15-50); MCH 29.9 pg (26.0-34.0); MCHC 31.1 g/dL (31.0-37.0); MCV 96.2 fL (80.0-100.0); MEAN PLATELET VOLUME 9.1 fL (7.4-10.4); MONOCYTES 7.6 % (2-11); NEUTROPHILS 74.8 % (40-80); PLATELET COUNT 359 10x3/uL (130-400); RBC 2.91 10x6/uL (4.20-6.10); WBC 7.7 10x3/uL (4.8-10.8)
[2017-04-03 06:21] LABS: CALC OSMOLALITY 285 mosm/kg (275-300); CALCIUM 8.6 mg/dL (8.5-10.1); CARBON DIOXIDE 33.5 mmol/L (21.0-32.0); CHLORIDE - SERUM 102 mmol/L (98-107); POTASSIUM - SERUM 4.9 mmol/L (3.5-5.1); SODIUM 141 mmol/L (136-145); UREA NITROGEN 25 mg/dL (7-18); eGFR NON AFRICAN AMERICAN 78 mL/min (90-120)
--- NOTE | 2017-04-03 06:24 | NUR ---
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
[2017-04-03 06:26] LABS: GLUCOSE 114 mg/dL (74-106)
--- NOTE | 2017-04-03 06:54 | NUR ---
SHIFT REPORT TO DAY SHIFT
--- NOTE | 2017-04-03 07:40 | NUR ---
PT RESTING IN BED WITH EYES OPEN CALL LIGHT IN REACH NO PROBLEMS WILL MONITER
[2017-04-03 08:54] VITALS: BP 109/39
--- NOTE | 2017-04-03 11:48 | NUR ---
PT DISCHARGED TO HOME VIA WHEELCHAIR WITH FAMILY PORTABLE O2 AT 3 LITERS ALL MEDS CALLED TO [facility] DISCHARGE SUMMARY AND MEDS REVIEWED WITH PT TOLERATED WELL
--- NOTE | 2017-04-03 12:14 | NUR ---
PATIENT DISCHARGING HOME WITH FAMILY . [facility] WILL PROVIDE THERAPY AT HOME. NO NEW DME NEEDED AT THIS TIME. DR. EDER JAMESON/JAMA MORALES 04/10/17 @ 11:15, DR. IMANI WOLF 05/20/17 @ 12:15 FOR XRAY AND 1:15 FOR APPOINTMENT. PATIENT CHOICE FORM FOR HOME HEALTH AND [facility] FORM SIGNED, EXPLAINED AND FILED IN CHART.. ORDERS HAVE BEEN FAXED WITH CONFORMATION RECIEVED
--- NOTE | 2017-06-17 13:18 | DS ---
PATIENT:DONNIE FLORES :43 MEDICAL RECORD: [id number] DISCHARGE SUMMARY ADMISSION DATE: 03/26/17 DISCHARGE DATE: 04/03/17 This is a discharge from inpatient rehab dated 04/03/2017. PRIMARY DIAGNOSIS: Decreased functional ability and ability to provide activities of daily living, status post L2 through L4 XLIS, this was done on 03/20 at [facility]. SECONDARY DIAGNOSES: 1. Spinal stenosis. 2. Lumbar radiculopathy. 3. Anemia, acute blood loss, iron deficient. 4. Pulmonary fibrosis. 5. Cssqr-[id number] respiratory failure. 6. Gastroesophageal reflux disease. 7. Status post myocardial infarction. 8. Aortic aneurysm. 9. Polymyalgia rheumatica. 10. Coronary artery disease. 11. Obstructive sleep apnea. 12. Diabetes. 13. Hypertension. 14. Hyperlipidemia. HOSPITAL COURSE: Full H&P is located elsewhere on the chart on this 71-year-old male who was admitted to inpatient rehab for physical therapy and occupational therapy to improve gait, transfer skills, bed mobility, and activities of daily living to a modified independent level. He was evaluated by PT and OT and their plans of care were followed. He required long-term care for observation and assessment, medication administration as well as wound care and monitoring of surgical incision. Fingerstick blood sugars were monitored throughout his hospital stay with appropriate adjustment in medications as needed. He remained on nebulized ipratropium/albuterol for respiratory support. He continued on appropriate home medications. He did have supplemental oxygen to keep sats greater than 90%. He was transfused with 1 unit of packed red blood cells on 04/01. Labs were monitored. Electrolytes were managed by protocol. He was cooperative with therapies, progressing towards goals. Case management was involved for discharge planning. He was considered stable for discharge on 04/03/2017. DISCHARGE MEDICATIONS: As per discharge medication reconciliation. DISCHARGE DISPOSITION: The patient is discharged home. He will continue his current diet and level of activity. He will have home health for continued PT, OT, and long-term care. We will follow up with primary care and specialists as directed. At least 30 minutes was spent on this discharge activity. TRANSINT:[id number] Voice Confirmation ID: [id number] DOCUMENT ID: [id number] Dictated By: LITTLE PEÑA I have interviewed/examined the above patient and agree with these documented DISCHARGE SUMMARY REPORT [id number] DONNIE FLORES findings. KARLA VERDUZCO MD at 1318 at 0939 CC: [id number] DICTATION DATE: 06/13/1748 HUMAN SERVICES PROFESSIONAL: 06/13/17 1347 DIS IN 04/03/17 [facility] [address] [place] [id number]
== END 2017-04-03 11:54 | disposition home health service (06) | DRG 552 ==
LOC: D.REHAB 14:54
PROVIDERS: ADMIT Emergency Medicine
DX: M48.061 Spinal stenosis, lumbar region without neurogenic claudication (principal); E11.9 Type 2 diabetes mellitus without complications; I10 Essential (primary) hypertension; I25.10 Atherosclerotic heart disease of native coronary artery without angina pectoris; K21.9 Gastro-esophageal reflux disease without esophagitis; J84.10 Pulmonary fibrosis, unspecified; G47.30 Sleep apnea, unspecified; M43.26 Fusion of spine, lumbar region